=== PATIENT | male | born 1930 | race Caucasian/White ===

== ENCOUNTER 2017-03-11 17:43 | Observation (INO) ==
--- NOTE | 2017-03-11 18:07 | Emergency Department Note ---
Disposition Clinical Impression: Bradycardia Disposition: Admitted As Inpatient Condition: Fair Time of Disposition: 19:53 ([facility]) Weakness HPI - General Chief complaint: ED General Medical Stated complaint: low heart rate Source: patient, family Mode of arrival: ambulatory Limitations: age Nursing Notes Reviewed: Yes Vital Signs Reviewed: Yes - History of Present Illness Pt Subjective Complaint: generalized weakness/fatigue Onset (ago): Just [employer] Duration: constant Location: generalized Migration: none Pain Severity: none Pain Scale: 0 If pain, quality: tingling Improves with: none Worsens with: none Context: history of similar Associated symptoms: Reports: syncope (near). Denies: chest pain, confusion, dark stools, diaphoresis, dysuria, easy bruising, fever/chills, headaches, loss of appetite, nausea/vomiting, myalgias, rash, shortness of breath - Related Data Home Medications Medication Instructions Recorded Confirmed Aspirin [Adult Low Dose Aspirin EC] 81 mg PO QAM 08/24/15 03/11/17 Citalopram [CeleXA] 10 mg PO QAM 08/24/15 03/11/17 Clopidogrel [Plavix] 75 mg PO HS 08/24/15 03/11/17 Multivitamin/Iron/Folic Acid 1 each PO QAM 08/24/15 03/11/17 [Centrum Complete Multivit Tab] Omeprazole [PriLOSEC] 20 mg PO QAM 08/24/15 03/11/17 Montelukast [Singulair] 10 mg PO DAILY 03/11/17 03/11/17 Previous Rx's Medication Instructions Recorded ALPRAZolam [Xanax 0.5 MG Tablet] 0.5 mg PO Q6H PRN #20 tab 03/13/17 Clotrimazole/Betameth Dip CRM 1 appl TP BID 5 Days 03/13/17 [Lotrisone CRM] Simvastatin [Zocor] 40 mg PO HS #0 03/13/17 Allergies Allergy/AdvReac Type Severity Reaction Status Date / Time No Known Allergies Allergy Verified 03/11/17 18:03 All systems ED: reviewed and negative except as stated. Review of Systems: As Per HPI Constitutional: Reports: weakness. Denies: fever Eyes: Denies: eye pain ENT ED: Denies: ear pain Cardiovascular: Reports: syncope (near). Denies: chest pain Respiratory: Denies: cough, dyspnea Gastrointestinal: Denies: abdominal pain Genitourinary: Denies: urgency, dysuria Musculoskeletal: Denies: neck pain Integumentary: Denies: rash Neurological: Denies: headache Psychiatric: Denies: anxiety Endocrine: Denies: fatigue Hematological/Lymphatic: Denies: easy bleeding Allergic/Immunologic: Denies: facial swelling Past Medical History - Past Medical History Attestation: Yes The following information was validated with the patient. Source: patient, old records reviewed, nursing notes reviewed Medical history: Reports: cancer, CVA Surgical history: Reports: cancer surgery Psychiatric history: Reports: depression - Social History Smoking Status: Unknown if ever smoked Smokeless Tobacco Status: No Alcohol use: Reports: none Drug use: Reports: none Physical Exam - General Limitations: age General appearance: alert, in no apparent distress - Head Head exam: atraumatic, normocephalic, normal inspection - Eye Eye exam: Present: normal appearance, PERRL, EOMI - ENT ENT exam: normal exam, normal oropharynx, mucous membranes moist - Neck Neck exam: Present: normal inspection, full ROM, trachea midline - Chest Chest inspection: Present: normal inspection, symmetric chest wall rise - Respiratory Respiratory exam: Present: normal lung sounds bilaterally - Cardiovascular Cardiovascular exam: Present: regular rate, normal rhythm, normal heart sounds - Abdominal Exam Abdominal exam: Present: soft, Non-Tender. Absent: tenderness, distention, guarding, rebound, rigidity - Extremities Exam Extremities exam: Present: normal inspection, full ROM, normal capillary refill. Absent: tenderness, pedal edema, joint swelling, calf tenderness - Expanded Lower Extremity Exam Neurovascular/Tendon exam: Present: normal capillary refill, normal fine/light touch Gait: observed and normal (but weak) - Back Exam Back exam: Present: normal inspection, full ROM. Absent: muscle spasm - Neurological Exam Neurological exam: Present: alert, oriented X3, CN II-XII intact, normal gait - Psychiatric Psychiatric exam: Present: normal affect, normal mood - Skin Skin exam: Present: warm, dry, intact, normal color Course Course Narrative: pt seen and examined and admitted for obsv will monitor and transfer if no improvement for pacer placement Vital Signs Temperature 98.1 F 03/11/17 17:45 Pulse Rate 40 03/11/17 17:45 Respiratory Rate 18 03/11/17 17:45 Blood Pressure 112/52 03/11/17 17:45 O2 Sat by Pulse Oximetry 95 03/11/17 17:45 Temperature 97.8 F 03/13/17 06:41 Pulse Rate 70 03/13/17 06:41 Respiratory Rate 16 03/13/17 06:41 Blood Pressure 144/85 03/13/17 06:41 O2 Sat by Pulse Oximetry 95 03/13/17 06:41 Oxygen Delivery Oxygen Delivery Room Air Weakness - MDM Narrative Medical decision making narrative: bradycardia medication induced sick sinus syndrome and possible need for pacer - Medical Records Medical records reviewed: Yes I reviewed the patient's medical records. - Lab Data Lab results reviewed: Yes I reviewed the patient's lab results. Result diagrams: 03/13/17 04:32 03/12/17 06:00 Lab Results 03/11/17 03/11/17 03/11/17 Range/Units 00:29 18:00 18:00 WBC 6.7 (4.3-11.1) K/mcL RBC 4.42 (4.19-5.50) M/mcL Hgb 12.4 L (12.9-16.9) g/dL Hct 37.0 L (37.5-50.1) % MCV 83.7 (83.0-100.0) fL MCH 28.1 (28.0-33.3) pg MCHC 33.5 (31.6-35.5) g/dL RDW 14.0 (11.5-14.5) % Plt Count 185 (140-400) K/mcL MPV 9.9 (9.4-12.4) fL Immature Gran % 0.3 (0-4) % Seg Neutrophils % 54.4 % Lymphocytes % 31.7 % Monocytes % 9.8 % Eosinophils % 3.2 % Basophils % 0.6 % Neutrophils # 3.6 (1.6-8.9) K/mcL Lymphocytes # 2.1 (0.6-4.6) K/mcL Monocytes # 0.7 (0.0-1.3) K/mcL Eosinophils # 0.2 (0.0-0.6) K/mcL Basophils # 0.0 (0.0-0.2) K/mcL PT 11.8 (9.4-12.1) Seconds INR 1.1 APTT 27.4 (26.0-36.0) Seconds Sodium (136-145) mEq/L Potassium (3.5-4.5) mEq/L Chloride (98-109) mEq/L Carbon Dioxide (19-29) mEq/L BUN (8-26) mg/dL Creatinine (0.72-1.25) mg/dL Est GFR ( Amer) (> 60) Est GFR (Non-Af Amer) (> 60) BUN/Creatinine Ratio (6-26) Glucose (70-99) mg/dL Calculated Osmolality (280-300) Calcium (8.6-10.8) mg/dL Troponin I 0.02 (0-0.03) ng/mL 03/11/17 03/11/17 Range/Units 18:00 18:00 WBC (4.3-11.1) K/mcL RBC (4.19-5.50) M/mcL Hgb (12.9-16.9) g/dL Hct (37.5-50.1) % MCV (83.0-100.0) fL MCH (28.0-33.3) pg MCHC (31.6-35.5) g/dL RDW (11.5-14.5) % Plt Count (140-400) K/mcL MPV (9.4-12.4) fL Immature Gran % (0-4) % Seg Neutrophils % % Lymphocytes % % Monocytes % % Eosinophils % % Basophils % % Neutrophils # (1.6-8.9) K/mcL Lymphocytes # (0.6-4.6) K/mcL Monocytes # (0.0-1.3) K/mcL Eosinophils # (0.0-0.6) K/mcL Basophils # (0.0-0.2) K/mcL PT (9.4-12.1) Seconds INR APTT (26.0-36.0) Seconds Sodium 142 (136-145) mEq/L Potassium 3.9 (3.5-4.5) mEq/L Chloride 109 (98-109) mEq/L Carbon Dioxide 22 (19-29) mEq/L BUN 11 (8-26) mg/dL Creatinine 1.02 (0.72-1.25) mg/dL Est GFR ( Amer) > 60 (> 60) Est GFR (Non-Af Amer) > 60 (> 60) BUN/Creatinine Ratio 11 (6-26) Glucose 146 H (70-99) mg/dL Calculated Osmolality 296 (280-300) Calcium 8.7 (8.6-10.8) mg/dL Troponin I 0.01 (0-0.03) ng/mL - Radiology Data Radiology results reviewed: Yes I reviewed the patient's radiology results. ITS Impressions Chest X-Ray 03/11/17 18:00 IMPRESSION: No acute process. D/ /11/2017 18:31:10 Amari Davis MD / luz elena Interpreting Provider: Amari Davis MD - EKG Data EKG attestation: Yes I reviewed and interpreted this EKG. EKG results narrative: Sinus rhythm first degree AV block interventricular conduction delay nonspecific T-wave rate 68 NM-254 QRS 115 QT 393 excess -15 Critical Care Time Critical Care Time: Yes Total Critical Care Time: 35 Attestation: Critical care performed:35 mins as the result of the low heart rate and near syncope and admission observed due to possible medicaiton error Time is exclusive of separately billable procedures. Time includes: direct patient care, patient reassessment, coordination of patient care, interpretation of data (laboratory data, radiology data, and respiratory data), review of patient's medical records, medical consultation and documentation of patient care. Procedures included in critical care time: Procedures excluded from critical care time:
[2017-03-11 18:16] LABS: Basophils % 0.6 %; Eosinophils # 0.2 K/mcL (0.0-0.6); Eosinophils % 3.2 %; Hemoglobin 12.4 g/dL (12.9-16.9); Immature Granulocytes % 0.3 % (0-4); Lymphocytes # 2.1 K/mcL (0.6-4.6); Lymphocytes % 31.7 %; Mean Corpuscular HGB Conc 33.5 g/dL (31.6-35.5); Mean Corpuscular Hemoglobin 28.1 pg (28.0-33.3); Mean Corpuscular Volume 83.7 fL (83.0-100.0); Mean Platelet Volume 9.9 fL (9.4-12.4); Monocytes # 0.7 K/mcL (0.0-1.3); Monocytes % 9.8 %; Neutrophils # 3.6 K/mcL (1.6-8.9); Platelet Count 185 K/mcL (140-400); Red Blood Count 4.42 M/mcL (4.19-5.50); Segmented Neutrophils % 54.4 %
[2017-03-11 18:23] LABS: INR 1.1; Prothrombin Time 11.8 Seconds (9.4-12.1)
[2017-03-11 18:26] LABS: Activated Partial Thrombo Time 27.4 Seconds (26.0-36.0)
[2017-03-11 18:31] LABS: BUN/Creatinine Ratio 11 (6-26); Blood Urea Nitrogen 11 mg/dL (8-26); Calcium 8.7 mg/dL (8.6-10.8); Carbon Dioxide 22 mEq/L (19-29); Chloride 109 mEq/L (98-109); Glucose 146 mg/dL (70-99); Osmolality,Calculated 296 (280-300); Potassium 3.9 mEq/L (3.5-4.5); Sodium 142 mEq/L (136-145); eGFR For African Americans > 60 (> 60); eGFR For Non-African Americans > 60 (> 60)
[2017-03-11] MEDS ORDERED: Naloxone 0.4 MG/ML INJ IVP PRN (20:28)
[2017-03-12] MEDS: ALPRAZolam 0.5 MG TABLET PO PRN ×2 (01:57→20:21)
[2017-03-12 06:35] LABS: Basophils % 0.5 %; Eosinophils # 0.2 K/mcL (0.0-0.6); Eosinophils % 2.7 %; Hematocrit 33.8 % (37.5-50.1); Hemoglobin 11.4 g/dL (12.9-16.9); Immature Granulocytes % 0.4 % (0-4); Lymphocytes # 2.7 K/mcL (0.6-4.6); Lymphocytes % 35.2 %; Mean Corpuscular HGB Conc 33.7 g/dL (31.6-35.5); Mean Corpuscular Hemoglobin 28.1 pg (28.0-33.3); Mean Corpuscular Volume 83.3 fL (83.0-100.0); Mean Platelet Volume 10.3 fL (9.4-12.4); Monocytes # 0.7 K/mcL (0.0-1.3); Monocytes % 9.1 %; Neutrophils # 4.1 K/mcL (1.6-8.9); Platelet Count 174 K/mcL (140-400); Red Blood Count 4.06 M/mcL (4.19-5.50); Red Cell Distribution Width 13.9 % (11.5-14.5); Segmented Neutrophils % 52.1 %
[2017-03-12 06:37] LABS: INR 1.2; Prothrombin Time 12.5 Seconds (9.4-12.1)
[2017-03-12 06:39] LABS: Activated Partial Thrombo Time 26.3 Seconds (26.0-36.0)
[2017-03-12 06:45] LABS: BUN/Creatinine Ratio 12 (6-26); Blood Urea Nitrogen 10 mg/dL (8-26); Calcium 8.6 mg/dL (8.6-10.8); Carbon Dioxide 24 mEq/L (19-29); Chloride 108 mEq/L (98-109); Glucose 97 mg/dL (70-99); Osmolality,Calculated 295 (280-300); Potassium 3.7 mEq/L (3.5-4.5); Sodium 143 mEq/L (136-145); eGFR For African Americans > 60 (> 60); eGFR For Non-African Americans > 60 (> 60)
[2017-03-12] MEDS: Multivit/Ca/Min/Fe/FA 1 TAB TABLET PO SCH (08:24)
[2017-03-12] MEDS: Aspirin Enteric Coated 81 MG Tablet PO SCH (08:24)
--- NOTE | 2017-03-12 09:55 | Internal Med History&Physical ---
Date of Encounter: 03/12/17 Time of Encounter: 09:25 Assessment and Plan (1) Bradycardia Current visit: Yes Status: Acute Now resolved. Etiology not obvious. Will monitor telemetry (2) Hypertension Current visit: No Status: Chronic Zestril was discontinued through the emergency room. Will monitor blood pressure Qualifiers: Hypertension type: essential hypertension Qualified Code(s): I10 - Essential (primary) hypertension (3) Hyperlipidemia Current visit: No Status: Chronic Lipid profile 09/02/2015 showed total/HDL ratio of 2.6. Continue statin Qualifiers: Hyperlipidemia type: unspecified Qualified Code(s): E78.5 - Hyperlipidemia , unspecified (4) CVA (cerebral vascular accident) Current visit: No Status: Acute Status post left carotid endarterectomy August 2015. Continue aspirin and Plavix. Will order PT and OT evaluation to assess functional ability. Family has requested he be placed at [facility] in [place]. 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 Qualifiers: Anemia type: unspecified type Qualified Code(s): D64.9 - Anemia, unspecified (6) Seborrheic dermatitis Current visit: Yes Status: Acute Will order Lotrisone cream Internal Medicine - H&P: HPI Chief complaint: Bradycardia Admitted From: Home Plans for Post Hospital Care: Home History of present illness: Mr. Charlton is a 86 year old male who was brought to emergency room after heart rate was found to be approximately 40/m. Blood pressure was stable at 112/52 in emergency room. He was admitted to [facility] floor for observation until further disposition can be obtained. He is a very poor historian. He does not know his age, date of , address or reason for coming to the hospital. Review of available records show history of hypertension but no known OK heart failure angina DVT or pulmonary embolus. He has had documented ASCVD and underwent left carotid endarterectomy August 2015 at [facility]. Past Med Surg Social Fam HX - Past Medical History Medical history: cancer, CVA Psychiatric history: depression - Past Surgical History Surgical History: cancer surgery - Social History Smoking Status: Unknown if ever smoked Smokeless Tobacco Status: No Alcohol use: none Drug use: none - Family History Brother Living Status: Hx Family Cardiac Disorders: Yes (OK) Mother Living Status: Hx Family Cardiac Disorders: Yes (OK) Internal Medicine - H&P: Meds Aspirin [Adult Low Dose Aspirin EC] 81 mg PO QAM 08/24/15 [History] Citalopram [CeleXA] 10 mg PO QAM 08/24/15 [History] Clopidogrel [Plavix] 75 mg PO HS 08/24/15 [History] Multivitamin/Iron/Folic Acid [Centrum Complete Multivit Tab] 1 each PO QAM 08/24 [History] Omeprazole [PriLOSEC] 20 mg PO QAM 08/24/15 [History] Simvastatin [Zocor] 80 mg PO HS 08/24/15 [History] Lisinopril [Zestril] 2.5 mg PO DAILY 03/11/17 [History] Montelukast [Singulair] 10 mg PO DAILY 03/11/17 [History] Allergies No Known Allergies Allergy (Verified 03/11/17 18:03) All Systems PM: A 10-system review of systems was performed and is negative for pertinent findings except as documented above in the HPI. Review of systems: Gen.: His weight has increased from 77.9 kg at the August 2015 hospitalization to 81.647 kg on admission now Cardiovascular: As per history of present illness Respiratory: He states he smoked for 2-3 years as a teenager. 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 He had left carotid endarterectomy at that time. 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 He denies seizures Endocrine: He denies diabetes or thyroid disease. He has history of hyperlipidemia Hematology/oncology: He had anemia on labs in the emergency room. He denies internal malignancies Psychiatric: He denies anxiety depression or other mental health issues. I note Celexa is listed on his home medicine list. Musk skeletal: He denies arthritis gout other bone joint or muscle disorders. - Constitutional Vitals: Temp Pulse Resp BP Pulse Ox 98.2 F 64 16 144/79 97 03/12/17 07:25 03/12/17 07:25 03/12/17 07:25 03/12/17 07:25 03/12/17 08:43 Exam: Gen.: He is a well-developed well-nourished male lying in bed who appears in no acute distress HEENT: Head is atraumatic and normocephalic. Eyes: EOMI. There is no scleral icterus. Mouth: Mucosa is moist. Neck: Supple and nontender. There is no thyromegaly or adenopathy noted. Heart: Regular without murmurs gallops or ectopics Lungs: No wheezes or crackles are heard. Abdomen: Soft and nontender. No masses or guarding are noted. Extremities: There is no cyanosis edema or clubbing noted. Dorsalis pedis and posterior tibial pulses are 1 over 2 bilaterally. He has contracture with immobility of his left arm and wrist. Neurologic: Mental status: He is able to answer some questions but is a poor historian overall. He does not know his age, date of , or reason for coming to the hospital. Cranial nerves: Smile is symmetric. Forehead wrinkles bilaterally. Tongue protrudes midline. EOMI. Motor: He does not move his left arm. The right arm moves well. No further neurologic testing is attempted. Skin: He has seborrheic dermatitis of his face. He has a large scar in the left upper arm extending to the left upper anterolateral chest area. He denies burn injury in the past and does not know why the scar is there. Internal Med - H&P Results - Labs CBC & Chem 7: 03/12/17 06:00 03/12/17 06:00 Labs: Short CBC 03/12/17 Range/Units 06:00 WBC 7.8 (4.3-11.1) K/mcL Hgb 11.4 L (12.9-16.9) g/dL Hct 33.8 L (37.5-50.1) % Plt Count 174 (140-400) K/mcL Neutrophils # 4.1 (1.6-8.9) K/mcL BMP 03/12/17 06:00 Sodium 143 Potassium 3.7 Chloride 108 Carbon Dioxide 24 BUN 10 Creatinine 0.84 Glucose 97 Calcium 8.6 Cardiac Enzymes 03/12/17 Range/Units 06:00 Troponin I 0.02 (0-0.03) ng/mL
--- NOTE | 2017-03-12 16:19 | Electrocardiograph Report ---
[address] [address] Test Date: 2017-03-11 Pat Name: [facility] Department: [id number] Room: [facility] Gender: M Clinical Sales Consultant: [id number] : 1930 Requested By: Ly Cavazos Order Number: [id number] Reading MD: Rosalind Solis Measurements Intervals [place] Rate: 68 P: -5 TN: 254 QRS: -15 QRSD: 115 T: -30 QT: 393 QTc: 411 Interpretive Statements SINUS RHYTHM WITH FIRST DEGREE AV BLOCK MODERATE INTRAVENTRICULAR CONDUCTION DELAY NONSPECIFIC ST & T-WAVE ABNORMALITY Electronically Signed On 03-12-2017 16:17:48 EDT by Rosalind Solis
[2017-03-12] MEDS: Clotrimazole/Betameth Dip CRM 45 APPL/45 GM TUBE TP SCH ×2 (17:04→20:24)
[2017-03-13 05:16] LABS: Basophils % 0.6 %; Eosinophils # 0.2 K/mcL (0.0-0.6); Eosinophils % 3.1 %; Hematocrit 36.3 % (37.5-50.1); Hemoglobin 12.4 g/dL (12.9-16.9); Immature Granulocytes % 0.4 % (0-4); Lymphocytes # 2.5 K/mcL (0.6-4.6); Lymphocytes % 34.9 %; Mean Corpuscular HGB Conc 34.2 g/dL (31.6-35.5); Mean Corpuscular Hemoglobin 28.3 pg (28.0-33.3); Mean Corpuscular Volume 82.9 fL (83.0-100.0); Mean Platelet Volume 10.2 fL (9.4-12.4); Monocytes # 0.7 K/mcL (0.0-1.3); Monocytes % 10.3 %; Neutrophils # 3.7 K/mcL (1.6-8.9); Platelet Count 185 K/mcL (140-400); Red Blood Count 4.38 M/mcL (4.19-5.50); Red Cell Distribution Width 13.8 % (11.5-14.5); Segmented Neutrophils % 50.7 %
[2017-03-13 06:04] LABS: Thyroid Stimulating Hormone 0.895 mcIU/mL (0.350-4.840)
[2017-03-13 06:46] VITALS: BP 144/85
[2017-03-13] MEDS: Multivit/Ca/Min/Fe/FA 1 TAB TABLET PO SCH (08:38)
[2017-03-13] MEDS: Clotrimazole/Betameth Dip CRM 45 APPL/45 GM TUBE TP SCH (08:38)
[2017-03-13] MEDS: Aspirin Enteric Coated 81 MG Tablet PO SCH (08:38)
--- NOTE | 2017-03-13 14:34 | Discharge Summary ---
Date of Encounter: 03/13/17 Time of Encounter: 14:20 - Discharge Diagnosis (1) Bradycardia Priority: Primary Status: Resolved (2) Hypertension Priority: Secondary Status: Chronic Qualifiers: Hypertension type: essential hypertension Qualified Code(s): I10 - Essential (primary) hypertension (3) Hyperlipidemia Priority: Secondary Status: Chronic Qualifiers: Hyperlipidemia type: unspecified Qualified Code(s): E78.5 - Hyperlipidemia , unspecified (4) CVA (cerebral vascular accident) Priority: Secondary Status: Chronic Qualifiers: CVA mechanism: stenosis Precerebral and cerebral artery: middle cerebral artery Laterality of affected vessel: left Qualified Code(s): I63.512 - 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 (5) Anemia Priority: Secondary Status: Acute Qualifiers: Anemia type: unspecified type Qualified Code(s): D64.9 - Anemia, unspecified (6) Seborrheic dermatitis Priority: Secondary Status: Acute - Discharge Medications Prescriptions: ALPRAZolam [Xanax 0.5 MG Tablet] 0.5 mg PO Q6H PRN #20 tab PRN Reason: Anxiety Home Medications: Aspirin [Adult Low Dose Aspirin EC] 81 mg PO QAM 08/24/15 [History] Citalopram [CeleXA] 10 mg PO QAM 08/24/15 [History] Clopidogrel [Plavix] 75 mg PO HS 08/24/15 [History] Multivitamin/Iron/Folic Acid [Centrum Complete Multivit Tab] 1 each PO QAM 08/24 [History] Omeprazole [PriLOSEC] 20 mg PO QAM 08/24/15 [History] Montelukast [Singulair] 10 mg PO DAILY 03/11/17 [History] ALPRAZolam [Xanax 0.5 MG Tablet] 0.5 mg PO Q6H PRN #20 tab 03/13/17 [Rx] Clotrimazole/Betameth Dip CRM [Lotrisone CRM] 1 appl TP BID 5 Days 03/13/17 [Rx] Simvastatin [Zocor] 40 mg PO HS #0 03/13/17 [Rx] Allergies/Adverse Reactions: Allergies No Known Allergies Allergy (Verified 03/11/17 18:03) Date of admission: 03/11/17 20:11 [facility] care physician: [facility] Consults: 03/12/17 10:14 Consult to Occupational Therapy [CONS] Routine Comment: Evaluate, develop and implement POC Reason for Consult: Status post multiple strokes, left hemiparesis 03/12/17 10:15 Consult to Physical Therapy [CONS] Routine Comment: Evaluate, develop and implement POC Reason for Consult: Multiple strokes, left hemiparesis - Patient Status Disposition: Transfer SNF Condition: Fair Functional capacity at discharge: uses cane/walker Overall status at discharge: patient is progressing back to baseline - Discharge Instructions - Diet and Activity Activity: as per physical therapy Diet: regular diet Hospital course: Mr. Charlton is a 86 year old male who was brought to emergency room after heart rate was found to be approximately 40/m. Blood pressure was stable at 112/52 in emergency room. He was admitted to [facility] for observation until further disposition can be obtained. Initial orders were written by the emergency room physician. I saw him on March 12 and performed the history and physical. Lisinopril was discontinued in emergency room. His blood pressure remained stable. Heart rate gradually returned to range of 60-80 bpm. He remained asymptomatic. Anemia testing was ordered with results pending at time of discharge. Hemoglobin was stable at 12.4 on the day of discharge. He was given Lotrisone cream for facial seborrheic dermatitis. This will be continued for 5 additional days at discharge. His daughter wished him to be discharged to [facility] for ongoing therapy. Arrangements were completed for this afternoon of March 13. - Time Spent with Patient Total time spent providing and/or coordinating discharge services: - Constitutional Vitals: Temp Pulse Resp BP Pulse Ox 97.8 F 70 16 144/85 95 03/13/17 06:41 03/13/17 06:41 03/13/17 06:41 03/13/17 06:41 03/13/17 06:41
[2017-03-13 14:44] LABS: Folate 15.8 ng/mL (7.0-31.4)
--- NOTE | 2017-03-13 14:57 | Physician Discharge Referral ---
ExtendedCare Referral Info Transfer To: [facility] Provider in Charge: Ermias Provider in Charge after Transfer: PCP - Diagnosis (1) Bradycardia Priority: Primary Status: Resolved (2) Hypertension Priority: Secondary Status: Chronic (3) Hyperlipidemia Priority: Secondary Status: Chronic (4) CVA (cerebral vascular accident) Priority: Secondary Status: Chronic (5) Anemia Priority: Secondary Status: Acute (6) Seborrheic dermatitis Priority: Secondary Status: Acute Prognosis: Fair Aware of Diagnosis: Patient, Family Aware of Prognosis: Patient, Family - Transfer Medications Prescriptions: ALPRAZolam [Xanax 0.5 MG Tablet] 0.5 mg PO Q6H PRN #20 tab PRN Reason: Anxiety Home Medications: Aspirin [Adult Low Dose Aspirin EC] 81 mg PO QAM 08/24/15 [History] Citalopram [CeleXA] 10 mg PO QAM 08/24/15 [History] Clopidogrel [Plavix] 75 mg PO HS 08/24/15 [History] Multivitamin/Iron/Folic Acid [Centrum Complete Multivit Tab] 1 each PO QAM 08/24 [History] Omeprazole [PriLOSEC] 20 mg PO QAM 08/24/15 [History] Montelukast [Singulair] 10 mg PO DAILY 03/11/17 [History] ALPRAZolam [Xanax 0.5 MG Tablet] 0.5 mg PO Q6H PRN #20 tab 03/13/17 [Rx] Clotrimazole/Betameth Dip CRM [Lotrisone CRM] 1 appl TP BID 5 Days 03/13/17 [Rx] Simvastatin [Zocor] 40 mg PO HS #0 03/13/17 [Rx] Allergies/Adverse Reactions: Allergies No Known Allergies Allergy (Verified 03/11/17 18:03) - Respiratory Orders Smoking Cessation: Smoking cessation has been advised. For more information, call the [place] Tobacco Quit Line at 3-105-BIKY-NOW. - Rehabiliation Orders Rehab Potential: Fair Rehab Orders: Evaluation for Physical Therapy, Evaluation for Occupational Therapy - Diet Orders Regular CERTIFICATION: I certify that the transfer of the above named patient to an Extended Care Facility is necessary for the continuing treatment of the diagnosis listed. The above information is true and accurate reflection of patient's current condition. Confidential - Redisclosure prohibited without a patient's written consent.
== END 2017-03-13 16:30 ==
LOC: EMEROOPIK 17:43 → INPPIK 17:43
PROVIDERS: ADMIT Internal Medicine; ATTEND Internal Medicine

== ENCOUNTER 2018-04-29 20:40 | Inpatient (IN) ==
[2018-04-29] MEDS ORDERED: 0.9 % Sodium Chloride 1,000 ML IVC ONE (20:55)
[2018-04-29] MEDS ORDERED: Ondansetron 4 MG/2 ML VIAL IVP ONE (20:55)
--- NOTE | 2018-04-29 21:10 | Emergency Department Note ---
Disposition Clinical Impression: Enteritis, Abdominal distension Disposition: Admitted As Inpatient Condition: Undetermined Referrals: Paul Bermudez MD [Primary Care Provider] - Forms: ED Satisfaction Letter Time of Disposition: 22:00 (Dr Echols accepted the pt, keep NPO, NG tube) Nausea/Vomiting/Diarrhea HPI - General Chief complaint: ED Nausea/Vomiting/Diarrhea Stated complaint: vomiting Source: EMS Limitations: other Nursing Notes Reviewed: Yes Vital Signs Reviewed: Yes - History of Present Illness HPI Narrative: Patient is a pleasant 87 yo M with significant PMH for CA, CVA, Dementia and HTN who is presenting to [facility] Emergency Room with a chief complaint off emesis with abd distension. SNF nursing staff called EMS. Pt has had 2 bilous emesis at 5 pm and another 2 juts proior to EMS arrival. All were biluous and projectile. He passed moderate BM today. He denies any abd pain at all. Pt does not take narcotics. Pt is a poor historian so Hx is obtained from SNF and document. Patient denies any fever, chills or night sweats. Pt also denies any eye pain or visual disturbances. There is no sore throat, nasal drainages or facial congestion. There is no chest pain, palpitations or racing heart. Pt also denies any shortness of breath, cough or chest congestion. There is no abdominal pain, or diarrhea. There is no urgency, frequency or dysuria. There is no muskulo-skeletal pain, arthralgia or back pain. Patient also denies any rash, edema or pruritus. There is no neurological manifestations, no headache, no vertigo or weakness. The patient also denies any anxiety, depression, hallucinations and has no homicidal or suicidal ideations. There is no polyuria, polydipsia or recent weight change. There is no easy bruising or bleeding. Review of other systems is otherwise negative except above. Pt Subjective Complaint: nausea, vomiting Onset (ago): hour(s) Description of emesis: bilious Number of episodes of emesis: 4 Associated Abdominal Pain: No - Related Data Home Medications Medication Instructions Recorded Confirmed Aspirin [Adult Low Dose Aspirin EC] 325 mg PO QAM 08/24/15 12/27/17 Clopidogrel [Plavix] 75 mg PO HS 08/24/15 12/27/17 Multivitamin/Iron/Folic Acid 1 each PO QAM 08/24/15 12/27/17 [Centrum Complete Multivit Tab] Montelukast [Singulair] 10 mg PO DAILY 03/11/17 12/27/17 Acetaminophen [Tylenol] 650 mg PO 0500 PRN 12/27/17 12/27/17 Citalopram [CeleXA] 20 mg PO DAILY 12/27/17 12/27/17 Lactobacillus Acidophilus 1 each PO QAM 12/27/17 12/27/17 [Acidophilus] Levofloxacin [Levaquin] 500 mg PO QAM 12/27/17 12/27/17 Lisinopril [Zestril] 2.5 mg PO DAILY 12/27/17 12/27/17 Pantoprazole Sodium [Protonix] 20 mg PO DAILY 12/27/17 12/27/17 Previous Rx's Medication Instructions Recorded ALPRAZolam [Xanax 0.5 MG Tablet] 0.5 mg PO Q6H PRN #20 tab 03/13/17 Simvastatin [Zocor] 40 mg PO HS #0 03/13/17 Allergies Allergy/AdvReac Type Severity Reaction Status Date / Time No Known Allergies Allergy Verified 03/11/17 18:03 All systems ED: reviewed and negative except as stated. Review of Systems: As Per HPI Constitutional: Denies: fever, chills, weakness, weight change Eyes: Denies: eye pain, eye discharge, vision change ENT ED: Denies: ear pain, throat pain, dental pain, hearing loss, epistaxis, congestion, dysphagia Cardiovascular: Denies: chest pain, palpitations, dyspnea on exertion, edema, syncope Respiratory: Denies: cough, dyspnea, wheezes, hemoptysis, stridor Gastrointestinal: Reports: nausea, vomiting, other (DISTENSION). Denies: abdominal pain, diarrhea, constipation, hematemesis, melena, hematochezia Genitourinary: Denies: urgency, dysuria, frequency, hematuria Musculoskeletal: Denies: back pain, neck pain, arthralgia, myalgia Integumentary: Denies: rash, abrasion, lesions Neurological: Denies: headache, weakness, numbness, paresthesias, confusion, abnormal gait, vertigo Psychiatric: Denies: anxiety, depression, suicidal thoughts, homicidal thoughts , auditory hallucinations, visual hallucinations Endocrine: Denies: fatigue Hematological/Lymphatic: Denies: easy bleeding, easy bruising Allergic/Immunologic: Denies: facial swelling, urticaria Past Medical History - Past Medical History Medical history: Reports: cancer, CVA Surgical history: Reports: cancer surgery Psychiatric history: Reports: depression - Social History Smoking Status: Former smoker Smokeless Tobacco Status: No Alcohol use: Reports: none Drug use: Reports: none Physical Exam - General Limitations: no limitations, other (DEMENTIA hx is challenging) General appearance: alert, in no apparent distress - Head Head exam: atraumatic, normocephalic, normal inspection - Eye Eye exam: Present: normal appearance, PERRL, EOMI - Expanded Eye Exam Pupils: Left: reactive - ENT ENT exam: normal exam, normal oropharynx, mucous membranes moist - Expanded ENT Exam External ear exam: Present: normal external inspection Mouth exam: Present: normal external inspection Teeth exam: Present: normal inspection Throat exam: Present: normal inspection - Neck Neck exam: Present: normal inspection, full ROM, trachea midline - Chest Chest inspection: Present: normal inspection, symmetric chest wall rise - Respiratory Respiratory exam: Present: normal lung sounds bilaterally - Cardiovascular Cardiovascular exam: Present: regular rate, normal rhythm, normal heart sounds - Abdominal Exam Abdominal exam: Present: soft, Non-Tender, distention, diminished bowel sounds. Absent: tenderness, guarding, rebound, rigidity - Extremities Exam Extremities exam: Present: normal inspection, full ROM. Absent: tenderness, pedal edema - Expanded Upper Extremity Exam Shoulder exam: Present: normal inspection, full ROM Arm exam: Present: normal inspection, full ROM Elbow exam: Present: normal inspection, full ROM Forearm/Wrist exam: Present: normal inspection, full ROM Hand exam: Present: normal inspection, full ROM Vascular exam: Normal: capillary refill, radial pulse - Expanded Lower Extremity Exam Hip/Pelvis exam: Present: normal inspection, full ROM Upper leg exam: Present: normal inspection, full ROM Knee exam: Present: normal inspection, full ROM Lower leg exam: Present: normal inspection, full ROM Ankle exam: Present: normal inspection, full ROM Foot/toe exam: Present: normal inspection, full ROM Neurovascular/Tendon exam: Absent: motor deficit, sensory deficit, tendon deficit - Back Exam Back exam: Present: normal inspection, full ROM. Absent: tenderness - Neurological Exam Neurological exam: Present: alert, other (baseline dementia) - Expanded Neurological Exam Patient oriented to: Present: person, place, time Coma Scale Eye Opening: Spontaneous Coma Scale Motor Response: Obeys Commands Coma Scale Verbal Response: Oriented Coma Scale Total: 15 - Psychiatric Psychiatric exam: Present: normal affect, normal mood - Skin Skin exam: Present: warm, dry, intact, normal color Course Vital Signs Temperature 97.7 F 04/29/18 20:41 Pulse Rate 89 04/29/18 20:41 Respiratory Rate 20 04/29/18 20:41 Blood Pressure 121/72 04/29/18 20:41 O2 Sat by Pulse Oximetry 94 04/29/18 20:41 Temperature 97.7 F 04/29/18 20:41 Pulse Rate 89 04/29/18 20:41 Respiratory Rate 20 04/29/18 20:41 Blood Pressure 121/72 04/29/18 20:41 O2 Sat by Pulse Oximetry 93 04/29/18 20:58 Oxygen Delivery Oxygen Delivery Nasal Cannula Nausea/Vomiting/Diarrhea - Differential Diagnosis Likely: food poisoning, gastroenteritis, drug-induced nausea and vomitting, dehydration, surgical process, bowel obstruction - Medical Records Medical records reviewed: Yes I reviewed the patient's medical records. - Lab Data Lab results reviewed: Yes I reviewed the patient's lab results. Result diagrams: 04/29/18 21:23 04/29/18 21:23 Lab Results 04/29/18 04/29/18 Range/Units 21:23 21:23 WBC 13.8 H (4.3-11.1) K/mcL RBC 5.39 (4.19-5.50) M/mcL Hgb 15.0 (12.9-16.9) g/dL Hct 45.5 (37.5-50.1) % MCV 84.4 (83.0-100.0) fL MCH 27.8 L (28.0-33.3) pg MCHC 33.0 (31.6-35.5) g/dL RDW 13.3 (11.5-14.5) % Plt Count 264 (140-400) K/mcL MPV 9.1 L (9.4-12.4) fL Immature Gran % 0.5 (0-4) % Seg Neutrophils % 77.2 % Lymphocytes % 13.2 % Monocytes % 7.8 % Eosinophils % 0.9 % Basophils % 0.4 % Neutrophils # 10.7 H (1.6-8.9) K/mcL Lymphocytes # 1.8 (0.6-4.6) K/mcL Monocytes # 1.1 (0.0-1.3) K/mcL Eosinophils # 0.1 (0.0-0.6) K/mcL Basophils # 0.1 (0.0-0.2) K/mcL Sodium 135 L (136-145) mEq/L Potassium 4.7 (3.5-5.1) mEq/L Chloride 99 (98-107) mEq/L Carbon Dioxide 26 (23-29) mEq/L BUN 27 H (8-23) mg/dL Creatinine 1.26 (0.70-1.30) mg/dL Est GFR ( Amer) > 60 (> 60) Est GFR (Non-Af Amer) 54 L (> 60) BUN/Creatinine Ratio 21 (6-26) Glucose 180 H (70-105) mg/dL Calculated Osmolality 290 (280-300) Calcium 9.4 (8.6-10.3) mg/dL Total Bilirubin 0.4 (0.3-1.0) mg/dL AST 19 (13-39) Units/L ALT 19 (7-52) Units/L Alkaline Phosphatase 97 (34-104) Units/L Serum Total Protein 7.7 (6.4-8.9) g/dL Albumin 3.6 (3.5-5.7) g/dL Globulin 4.1 H (2.4-3.5) g/dL Albumin/Globulin Ratio 0.9 L (1.1-2.2) - Radiology Data Radiology results reviewed: Yes I reviewed the patient's radiology results.
[2018-04-29 21:29] LABS: Basophils # 0.1 K/mcL (0.0-0.2); Basophils % 0.4 %; Eosinophils # 0.1 K/mcL (0.0-0.6); Eosinophils % 0.9 %; Hematocrit 45.5 % (37.5-50.1); Immature Granulocytes % 0.5 % (0-4); Lymphocytes # 1.8 K/mcL (0.6-4.6); Lymphocytes % 13.2 %; Mean Corpuscular Hemoglobin 27.8 pg (28.0-33.3); Mean Corpuscular Volume 84.4 fL (83.0-100.0); Mean Platelet Volume 9.1 fL (9.4-12.4); Monocytes # 1.1 K/mcL (0.0-1.3); Monocytes % 7.8 %; Platelet Count 264 K/mcL (140-400); Red Blood Count 5.39 M/mcL (4.19-5.50); Red Cell Distribution Width 13.3 % (11.5-14.5); Segmented Neutrophils % 77.2 %
[2018-04-29 21:30] LABS: Neutrophils # 10.7 K/mcL (1.6-8.9)
[2018-04-29 21:47] LABS: Alanine Aminotransferase 19 Units/L (7-52); Albumin 3.6 g/dL (3.5-5.7); Albumin/Globulin Ratio 0.9 (1.1-2.2); Alkaline Phosphatase 97 Units/L (34-104); Aspartate Amino Transferase 19 Units/L (13-39); BUN/Creatinine Ratio 21 (6-26); Bilirubin,Total 0.4 mg/dL (0.3-1.0); Blood Urea Nitrogen 27 mg/dL (8-23); Calcium 9.4 mg/dL (8.6-10.3); Carbon Dioxide 26 mEq/L (23-29); Chloride 99 mEq/L (98-107); Globulin 4.1 g/dL (2.4-3.5); Glucose 180 mg/dL (70-105); Osmolality,Calculated 290 (280-300); Potassium 4.7 mEq/L (3.5-5.1); Sodium 135 mEq/L (136-145); Total Protein 7.7 g/dL (6.4-8.9); eGFR For Non-African Americans 54 (> 60)
[2018-04-29] MEDS ORDERED: MetroNIDAZOLE 500 MG/100 ML 500 MG/100 ML BAG IVPB ONE (21:54)
[2018-04-29 22:05] LABS: Bilirubin,Urine Negative (Negative); Blood,Urine Small (Negative); Clarity,Urine Clear (Clear); Color,Urine Yellow (Yellow); Glucose,Urine (UA) Normal (Normal); Ketones,Urine Negative (Negative); Leukocyte Esterase,Urine Negative (Negative); Nitrite,Urine Negative (Negative); Protein,Urine Negative (Neg-Trace); Specific Gravity,Urine 1.015 (1.010-1.025); Urobilinogen,Urine Normal (Normal)
[2018-04-29] MEDS ORDERED: Ondansetron 4 MG/2 ML VIAL IVP PRN ×2 (22:06→22:56)
[2018-04-29] MEDS ORDERED: Naloxone 0.4 MG/ML INJ IVP PRN ×2 (22:06→22:56)
[2018-04-29 22:13] LABS: RBC,Urine 15-30 per hpf (0-3); Squamous Epithelial Cell,Urine Few per lpf (None-Few)
[2018-04-29] MEDS ORDERED: 0.9 % Sodium Chloride 1,000 ML IVC SCH (22:15)
[2018-04-29] MEDS: 0.9 % Sodium Chloride 1,000 ML IVC SCH (23:42)
[2018-04-30 06:37] LABS: Basophils # 0.1 K/mcL (0.0-0.2); Basophils % 0.5 %; Eosinophils # 0.2 K/mcL (0.0-0.6); Eosinophils % 2.4 %; Hematocrit 37.6 % (37.5-50.1); Hemoglobin 12.3 g/dL (12.9-16.9); Immature Granulocytes % 0.6 % (0-4); Lymphocytes # 1.7 K/mcL (0.6-4.6); Lymphocytes % 17.1 %; Mean Corpuscular HGB Conc 32.7 g/dL (31.6-35.5); Mean Corpuscular Hemoglobin 28.1 pg (28.0-33.3); Mean Platelet Volume 9.3 fL (9.4-12.4); Monocytes % 9.7 %; Neutrophils # 7.1 K/mcL (1.6-8.9); Platelet Count 217 K/mcL (140-400); Red Blood Count 4.37 M/mcL (4.19-5.50); Red Cell Distribution Width 13.2 % (11.5-14.5); Segmented Neutrophils % 69.7 %
[2018-04-30 06:50] LABS: INR 1.2; Prothrombin Time 13.9 Seconds (9.4-12.1)
[2018-04-30] MEDS: 0.9 % Sodium Chloride 1,000 ML IVC SCH (06:58)
[2018-04-30 07:03] LABS: Alanine Aminotransferase 14 Units/L (7-52); Albumin/Globulin Ratio 0.9 (1.1-2.2); Alkaline Phosphatase 78 Units/L (34-104); Aspartate Amino Transferase 14 Units/L (13-39); BUN/Creatinine Ratio 22 (6-26); Bilirubin,Total 0.4 mg/dL (0.3-1.0); Blood Urea Nitrogen 22 mg/dL (8-23); Calcium 8.4 mg/dL (8.6-10.3); Carbon Dioxide 27 mEq/L (23-29); Chloride 104 mEq/L (98-107); Globulin 3.2 g/dL (2.4-3.5); Glucose 131 mg/dL (70-105); Magnesium 2.1 mg/dL (1.6-2.6); Osmolality,Calculated 291 (280-300); Potassium 4.2 mEq/L (3.5-5.1); Sodium 138 mEq/L (136-145); Total Protein 6.2 g/dL (6.4-8.9); eGFR For Non-African Americans > 60 (> 60)
--- NOTE | 2018-04-30 14:38 | Internal Med History&Physical ---
Date of Encounter: 04/30/18 Time of Encounter: 14:10 Assessment and Plan (1) Enteritis Current visit: Yes Status: Acute He was given IV Cipro and Flagyl in emergency room. Continue these with addition of lactobacillus when able to tolerate oral intake (2) Pneumonia Current visit: Yes Status: Acute Abdominal CT scan showed right small pleural effusion with adjacent airspace disease. Will give Cipro and Flagyl as per above. Qualifiers: Pneumonia type: due to unspecified organism Laterality: right Lung location: lower lobe of lung Qualified Code(s): J18.1 - Lobar pneumonia, unspecified organism (3) Hypertension Current visit: No Status: Chronic Continue lisinopril when tolerating oral intake and monitor blood pressure. Qualifiers: Hypertension type: essential hypertension Qualified Code(s): I10 - Essential (primary) hypertension (4) CVA (cerebral vascular accident) Current visit: No Status: Chronic Continue Plavix and aspirin when oral intake resumes. Qualifiers: CVA mechanism: stenosis Precerebral and cerebral artery: middle cerebral artery Laterality of affected vessel: left Qualified Code(s): I63.512 - 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 (5) Anemia Current visit: No Status: Acute Hemoglobin decreased to 12.3 with IV hydration. Will order anemia testing in a.m. Qualifiers: Anemia type: unspecified type Qualified Code(s): D64.9 - Anemia, unspecified Internal Medicine - H&P: HPI Chief complaint: Vomiting Admitted From: Emergency Dept Plans for Post Hospital Care: Home History of present illness: Mr. Charlton is a 87 year old male who was sent to emergency room from [facility] after staff reported multiple episodes of vomiting in the preceding hours. There was no visible blood reported. He was evaluated in emergency room and found to have leukocytosis without significant left shift. CT scan showed abnormality suggestive of infectious enteritis. He was admitted to Med[facility] floor for ongoing care needs. Patient has dementia and cannot give reliable history. Review of available records show GI history negative for known disorders of liver gallbladder or exocrine pancreas. His daughter denies knowledge of past colonoscopy or previous similar episodes. Past Med Surg Social Fam HX - Past Medical History Medical history: cancer, CVA, dementia, GERD, hypertension Additional medical history: Dermatitis, Skin cancer right ear, Peripheral Vascular Disease, Psoriasis Psychiatric history: anxiety, depression - Past Surgical History Surgical History: cancer surgery Additional surgical history: Right ear Ca. surgery - Social History Smoking Status: Former smoker Smokeless Tobacco Status: No Alcohol use: none Drug use: none - Family History Brother Living Status: Hx Family Cardiac Disorders: Yes (CT) Mother Living Status: Hx Family Cardiac Disorders: Yes (CT) Internal Medicine - H&P: Meds Aspirin [Adult Low Dose Aspirin EC] 81 mg PO QAM 08/24/15 [History] Clopidogrel [Plavix] 75 mg PO HS 08/24/15 [History] Multivitamin/Iron/Folic Acid [Centrum Complete Multivit Tab] 1 each PO QAM 08/24 [History] Montelukast [Singulair] 10 mg PO DAILY 03/11/17 [History] ALPRAZolam [Xanax 0.5 MG Tablet] 0.5 mg PO Q6H PRN #20 tab 03/13/17 [Rx] Simvastatin [Zocor] 40 mg PO HS #0 03/13/17 [Rx] Acetaminophen [Tylenol] 325 mg PO 0500 PRN 12/27/17 [History] Citalopram [CeleXA] 20 mg PO DAILY 12/27/17 [History] Lisinopril [Zestril] 2.5 mg PO DAILY 12/27/17 [History] Pantoprazole Sodium [Protonix] 20 mg PO DAILY 12/27/17 [History] Ammonium Lactate [Lac-Hydrin Five] 226 gm TP DAILY 04/29/18 [History] Cetirizine HCl [Zyrtec] 10 mg PO DAILY 04/29/18 [History] Vitamin B Complex/Vit C/Vit E [Stresstab] 1 each PO DAILY 04/29/18 [History] 3 Allergy/AdvReac Type Severity Reaction Status Date / Time No Known Allergies Allergy Verified 03/11/17 18:03 All Systems PM: A 10-system review of systems was performed and is negative for pertinent findings except as documented above in the HPI. Review of systems: Review of systems from his February 2017 [facility] hospitalization were reviewed and revised as below. Gen.: His weight has increased from 77.9 kg at the August 2015 hospitalization to 84.368 kg on admission now Cardiovascular: He has history of hypertension but no known CT heart failure angina DVT or pulmonary embolus. He has ASCVD and had left carotid endarterectomy August 2015 at [facility]. Respiratory: He states he smoked for 2-3 years as a teenager. 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 He had left carotid endarterectomy at that time. 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 He denies seizures Endocrine: He denies diabetes or thyroid disease. He has history of hyperlipidemia Hematology/oncology: He had anemia on labs in the emergency room. He denies internal malignancies Psychiatric: He denies anxiety depression or other mental health issues. I note Joe is listed on his home medicine list. Musk skeletal: He denies arthritis gout other bone joint or muscle disorders. - Constitutional Vitals: Temp Pulse Resp BP Pulse Ox 98.9 F 64 16 120/64 97 04/30/18 10:45 04/30/18 10:45 04/30/18 10:45 04/30/18 10:45 04/30/18 10:45 Exam: Gen.: He is a well-developed well-nourished male lying in bed who appears in no acute distress HEENT: Head is atraumatic and normocephalic. Eyes: EOMI. There is no scleral icterus. Mouth: Mucosa is moist. Neck: Stiff on passive range of motion in all directions. He has a well-healed left carotid endarterectomy scar. Heart: Regular without murmurs gallops or ectopics Lungs: No wheezes or crackles are heard. Abdomen: There is firmness without masses or guarding present. Bowel sounds are diminished. Extremities: His left arm is in a flexion contraction position. There is no cyanosis edema or clubbing noted of his legs. Dorsalis pedis and posttibial pulses are trace palpable bilaterally. His feet are warm to touch. 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 Neurologic: Mental status: He is hard of hearing and has dementia. He does not supply significant history. He denies pain or dyspnea. Cranial nerves: Facial movements are minimal but symmetric. Forehead wrinkles bilaterally. Tongue protrudes midline. EOMI. Motor: He does not move his left arm. The right arm moves well. He does not move his legs much spontaneously. Cerebellar: Finger to nose is intact with the right arm. Skin: Warm and dry. He has seborrheic dermatitis of his face. He has maceration with shallow ulcer in the left antecubital area skin from presumable flexion contracture Internal Med - H&P Results - Labs CBC & Chem 7: 04/30/18 06:25 04/30/18 06:25 Labs: Short CBC 04/30/18 Range/Units 06:25 WBC 10.2 (4.3-11.1) K/mcL Hgb 12.3 L D (12.9-16.9) g/dL Hct 37.6 (37.5-50.1) % Plt Count 217 (140-400) K/mcL Neutrophils # 7.1 (1.6-8.9) K/mcL BMP 04/30/18 06:25 Sodium 138 Potassium 4.2 Chloride 104 Carbon Dioxide 27 BUN 22 Creatinine 1.01 Glucose 131 H Calcium 8.4 L Liver Function 04/30/18 Range/Units 06:25 Total Bilirubin 0.4 (0.3-1.0) mg/dL AST 14 (13-39) Units/L ALT 14 (7-52) Units/L Alkaline Phosphatase 78 (34-104) Units/L Albumin 3.0 L (3.5-5.7) g/dL
[2018-04-30] MEDS: MetroNIDAZOLE 500 MG/100 ML 500 MG/100 ML BAG IVPB SCH (17:47)
[2018-05-01] MEDS: MetroNIDAZOLE 500 MG/100 ML 500 MG/100 ML BAG IVPB SCH ×3 (00:15→15:36)
[2018-05-01 06:28] LABS: Basophils % 0.5 %; Eosinophils # 0.2 K/mcL (0.0-0.6); Eosinophils % 2.5 %; Hematocrit 35.4 % (37.5-50.1); Hemoglobin 11.6 g/dL (12.9-16.9); Immature Granulocytes % 0.5 % (0-4); Lymphocytes # 1.8 K/mcL (0.6-4.6); Lymphocytes % 20.7 %; Mean Corpuscular HGB Conc 32.8 g/dL (31.6-35.5); Mean Corpuscular Hemoglobin 28.2 pg (28.0-33.3); Mean Corpuscular Volume 85.9 fL (83.0-100.0); Mean Platelet Volume 8.7 fL (9.4-12.4); Monocytes % 11.8 %; Neutrophils # 5.5 K/mcL (1.6-8.9); Platelet Count 198 K/mcL (140-400); Red Blood Count 4.12 M/mcL (4.19-5.50); Red Cell Distribution Width 13.1 % (11.5-14.5)
[2018-05-01 06:48] LABS: BUN/Creatinine Ratio 14 (6-26); Blood Urea Nitrogen 14 mg/dL (8-23); Calcium 8.5 mg/dL (8.6-10.3); Carbon Dioxide 28 mEq/L (23-29); Chloride 103 mEq/L (98-107); Glucose 120 mg/dL (70-105); Osmolality,Calculated 286 (280-300); Sodium 137 mEq/L (136-145); eGFR For Non-African Americans > 60 (> 60)
--- NOTE | 2018-05-01 10:59 | Internal Med Progress Note ---
Date of Encounter: 05/01/18 Time of Encounter: 10:50 - Assessment and plan (1) Enteritis Current Visit: Yes Status: Acute Assessment and plan: May 01. Continue IV Cipro and Flagyl with lactobacillus. (2) Pneumonia Current Visit: Yes Status: Acute Assessment and plan: May 01. Continue IV Cipro and Flagyl with lactobacillus. Qualifiers: Pneumonia type: due to unspecified organism Laterality: right Lung location: lower lobe of lung Qualified Code(s): J18.1 - Lobar pneumonia, unspecified organism (3) Hypertension Current Visit: No Status: Chronic Assessment and plan: May 01. Blood pressure remains stable off medication. Will not restart at this time. Qualifiers: Hypertension type: essential hypertension Qualified Code(s): I10 - Essential (primary) hypertension (4) CVA (cerebral vascular accident) Current Visit: No Status: Chronic Assessment and plan: May 01. Resume Plavix and aspirin. Qualifiers: CVA mechanism: stenosis Precerebral and cerebral artery: middle cerebral artery Laterality of affected vessel: left Qualified Code(s): I63.512 - 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 (5) Anemia Current Visit: No Status: Acute Assessment and plan: May 01. Hemoglobin decreased to 11.6. Order anemia testing in a.m. Qualifiers: Anemia type: unspecified type Qualified Code(s): D64.9 - Anemia, unspecified - Subjective Interval history: May 01. He has no new complaints. He pulled NG tube out several hours ago and it was not reinserted. He has had no vomiting. - Constitutional Vitals: Temp Pulse Resp BP Pulse Ox 98.9 F 64 16 101/55 95 05/01/18 08:13 05/01/18 08:13 05/01/18 08:13 05/01/18 08:13 05/01/18 08:27 Exam: He is resting comfortably in bed and appears in no acute distress. Affect is cheerful. He is wearing oxygen by nasal cannula. Heart is regular without murmurs gallops or ectopics. Lungs are clear anteriorly. Abdomen is soft and nontender with bowel sounds present. I reviewed his medications and lab results. Internal Medicine: Result - Labs CBC & Chem 7: 05/01/18 06:18 05/01/18 06:18 Labs: Short CBC 05/01/18 Range/Units 06:18 WBC 8.5 (4.3-11.1) K/mcL Hgb 11.6 L (12.9-16.9) g/dL Hct 35.4 L (37.5-50.1) % Plt Count 198 (140-400) K/mcL Neutrophils # 5.5 (1.6-8.9) K/mcL BMP 05/01/18 06:18 Sodium 137 Potassium 4.0 Chloride 103 Carbon Dioxide 28 BUN 14 Creatinine 0.98 Glucose 120 H Calcium 8.5 L - ABG Interpretation ABG results: PT/INR, D-dimer PT 13.9 Seconds (9.4-12.1) H 04/30/18 06:25 Consult Discharge Plan - Plan Referrals: Paul Bermudez MD [Primary Care Provider] - 1 week
[2018-05-01] MEDS: Aspirin 81 MG TAB.CHEW PO SCH (14:04)
[2018-05-02] MEDS: MetroNIDAZOLE 500 MG/100 ML 500 MG/100 ML BAG IVPB SCH ×2 (00:40→08:40)
[2018-05-02 05:33] VITALS: BP 120/62
[2018-05-02 07:00] LABS: Basophils # 0.1 K/mcL (0.0-0.2); Basophils % 0.7 %; Eosinophils # 0.2 K/mcL (0.0-0.6); Eosinophils % 2.3 %; Hematocrit 36.8 % (37.5-50.1); Hemoglobin 12.2 g/dL (12.9-16.9); Immature Granulocytes % 0.5 % (0-4); Lymphocytes # 1.7 K/mcL (0.6-4.6); Lymphocytes % 22.6 %; Mean Corpuscular HGB Conc 33.2 g/dL (31.6-35.5); Mean Corpuscular Volume 84.4 fL (83.0-100.0); Mean Platelet Volume 9.2 fL (9.4-12.4); Monocytes # 0.9 K/mcL (0.0-1.3); Monocytes % 12.4 %; Neutrophils # 4.6 K/mcL (1.6-8.9); Platelet Count 202 K/mcL (140-400); Red Blood Count 4.36 M/mcL (4.19-5.50); Red Cell Distribution Width 12.9 % (11.5-14.5); Segmented Neutrophils % 61.5 %
[2018-05-02] MEDS: Aspirin 81 MG TAB.CHEW PO SCH (08:39)
[2018-05-02 09:32] LABS: % Iron Saturation 16 % (20-55); Iron 48 mcg/dL (65-175); Transferrin 221 mg/dL (203-362)
[2018-05-02 09:49] LABS: Ferritin 42 ng/mL (20-250)
[2018-05-02 09:55] LABS: Vitamin B12 405 pg/mL (250-1100)
[2018-05-02 10:20] LABS: Folate > 22.3 ng/mL (3.0-16.0)
--- NOTE | 2018-05-02 10:27 | Discharge Summary ---
Date of Encounter: 05/02/18 Time of Encounter: 10:15 - Discharge Diagnosis (1) Enteritis Priority: Primary Status: Resolved (2) Pneumonia Priority: Secondary Status: Acute Qualifiers: Pneumonia type: due to unspecified organism Laterality: right Lung location: lower lobe of lung Qualified Code(s): J18.1 - Lobar pneumonia, unspecified organism (3) Hypertension Priority: Secondary Status: Chronic Qualifiers: Hypertension type: essential hypertension Qualified Code(s): I10 - Essential (primary) hypertension (4) CVA (cerebral vascular accident) Priority: Secondary Status: Chronic Qualifiers: CVA mechanism: stenosis Precerebral and cerebral artery: middle cerebral artery Laterality of affected vessel: left Qualified Code(s): I63.512 - 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 (5) Anemia Priority: Secondary Status: Acute Qualifiers: Anemia type: unspecified type Qualified Code(s): D64.9 - Anemia, unspecified Hospital course: Mr. Charlton is a 87 year old male who was sent to emergency room from [facility] after staff reported multiple episodes of vomiting in the preceding hours. There was no visible blood reported. He was evaluated in emergency room and found to have leukocytosis without significant left shift. CT scan showed abnormality suggestive of infectious enteritis. He was admitted to [facility] floor for ongoing care needs. Initial orders written by the emergency room physician. I saw him on April 30 and performed a history and physical. He was given IV Cipro and Flagyl with lactobacillus. Abdominal CT scan showed right small pleural effusion with adjacent airspace disease. He had clinical improvement with WBC normalizing by the day after admission and remained normal throughout hospitalization with resolution of left shift. He will be prescribed oral Cipro for 2 additional days after discharge. Azotemia resolved with BUN and creatinine decreasing to 14 and 0.98 respectively by May 01 with estimated GFR greater than 60. Anemia testing showed iron 48, transferrin saturation 16%, transferrin 221, ferritin 42, and B12 405. An NG tube was initially placed but the patient removed this after a few hours and had no further episodes of vomiting. He tolerated adequate amounts of oral intake by day of discharge. He will be discharged to [facility] and follow with his PCP. - Time Spent with Patient Total time spent providing and/or coordinating discharge services: - Discharge Medications Prescriptions: Ciprofloxacin [Cipro] 500 mg PO BID 2 Days tablet Lactobacillus [Culturelle] 1 each PO BID 2 Days [email or web address] Home Medications: Aspirin [Adult Low Dose Aspirin EC] 81 mg PO QAM 08/24/15 [History] Clopidogrel [Plavix] 75 mg PO HS 08/24/15 [History] Multivitamin/Iron/Folic Acid [Centrum Complete Multivit Tab] 1 each PO QAM 08/24 [History] Montelukast [Singulair] 10 mg PO DAILY 03/11/17 [History] ALPRAZolam [Xanax 0.5 MG Tablet] 0.5 mg PO Q6H PRN #20 tab 03/13/17 [Rx] Simvastatin [Zocor] 40 mg PO HS #0 03/13/17 [Rx] Acetaminophen [Tylenol] 325 mg PO 0500 PRN 12/27/17 [History] Citalopram [CeleXA] 20 mg PO DAILY 12/27/17 [History] Pantoprazole Sodium [Protonix] 20 mg PO DAILY 12/27/17 [History] Ammonium Lactate [Lac-Hydrin Five] 226 gm TP DAILY 04/29/18 [History] Vitamin B Complex/Vit C/Vit E [Stresstab] 1 each PO DAILY 04/29/18 [History] Cetirizine HCl [Zyrtec] 10 mg PO DAILY PRN #0 05/02/18 [Rx] Ciprofloxacin [Cipro] 500 mg PO BID 2 Days tablet 05/02/18 [Rx] Lactobacillus [Culturelle] 1 each PO BID 2 Days [email or web address] 05/02/18 [Rx] Allergies/Adverse Reactions: 3 Allergy/AdvReac Type Severity Reaction Status Date / Time No Known Allergies Allergy Verified 03/11/17 18:03 Date of admission: 05/01/18 11:06 Primary care physician: Paul Bermudez MD - Constitutional Vitals: Temp Pulse Resp BP Pulse Ox 98.1 F 66 16 120/62 96 05/02/18 05:32 05/02/18 05:32 05/02/18 05:32 05/02/18 05:32 05/02/18 05:32 - Patient Status Disposition: Transfer SNF Condition: Undetermined - Discharge Instructions Follow Up With: Paul Bermudez MD [Primary Care Provider] - 1 week - Diet and Activity Activity: resume usual activities as tolerated Diet: advance to your usual diet
--- NOTE | 2018-05-02 10:32 | Physician Discharge Referral ---
ExtendedCare Referral Info Transfer To: [facility] Provider in Charge: Ermias Provider in Charge after Transfer: PCP (Aidan) - Diagnosis (1) Enteritis Priority: Primary Status: Resolved (2) Pneumonia Priority: Secondary Status: Acute (3) Hypertension Priority: Secondary Status: Chronic (4) CVA (cerebral vascular accident) Priority: Secondary Status: Chronic (5) Anemia Priority: Secondary Status: Acute - Transfer Medications Prescriptions: Ciprofloxacin [Cipro] 500 mg PO BID 2 Days tablet Lactobacillus [Culturelle] 1 each PO BID 2 Days cap.[email or web address] Home Medications: Aspirin [Adult Low Dose Aspirin EC] 81 mg PO QAM 08/24/15 [History] Clopidogrel [Plavix] 75 mg PO HS 08/24/15 [History] Multivitamin/Iron/Folic Acid [Centrum Complete Multivit Tab] 1 each PO QAM 08/24 [History] Montelukast [Singulair] 10 mg PO DAILY 03/11/17 [History] ALPRAZolam [Xanax 0.5 MG Tablet] 0.5 mg PO Q6H PRN #20 tab 03/13/17 [Rx] Simvastatin [Zocor] 40 mg PO HS #0 03/13/17 [Rx] Acetaminophen [Tylenol] 325 mg PO 0500 PRN 12/27/17 [History] Citalopram [CeleXA] 20 mg PO DAILY 12/27/17 [History] Pantoprazole Sodium [Protonix] 20 mg PO DAILY 12/27/17 [History] Ammonium Lactate [Lac-Hydrin Five] 226 gm TP DAILY 04/29/18 [History] Vitamin B Complex/Vit C/Vit E [Stresstab] 1 each PO DAILY 04/29/18 [History] Cetirizine HCl [Zyrtec] 10 mg PO DAILY PRN #0 05/02/18 [Rx] Ciprofloxacin [Cipro] 500 mg PO BID 2 Days tablet 05/02/18 [Rx] Lactobacillus [Culturelle] 1 each PO BID 2 Days cap.[email or web address] 05/02/18 [Rx] Allergies/Adverse Reactions: 3 Allergy/AdvReac Type Severity Reaction Status Date / Time No Known Allergies Allergy Verified 03/11/17 18:03 - Respiratory Orders Smoking Cessation: Smoking cessation has been advised. For more information, call the [place] [facility] Quit Line at 8-354-PNGK-NOW. - Lab Orders Lab Orders: Other (include drug levels w/frequency) (CBC with differential, BMP in 1 week) - Rehabiliation Orders Rehab Potential: Fair Rehab Orders: Evaluation for Physical Therapy, Evaluation for Occupational Therapy - Diet Orders Mechanical Soft CERTIFICATION: I certify that the transfer of the above named patient to an Extended Care Facility is necessary for the continuing treatment of the diagnosis listed. The above information is true and accurate reflection of patient's current condition. Confidential - Redisclosure prohibited without a patient's written consent.
== END 2018-05-02 12:00 | DRG 391 ==
LOC: EMEROOPIK 20:40 → INPPIK 20:40
PROVIDERS: ADMIT Internal Medicine; ATTEND Internal Medicine

== ENCOUNTER 2019-07-31 01:03 | Inpatient (IN) ==
[2019-07-31] MEDS ORDERED: Ondansetron 4 MG/2 ML VIAL IVP ONE (01:14)
[2019-07-31] MEDS ORDERED: Vancomycin 1,000 MG, Vancomycin 500 MG in 0.9 % Sodium Chloride 250 ML IVPB ONE (01:49)
[2019-07-31 01:51] LABS: Basophils # 0.1 K/mcL (0.0-0.2); Basophils % 0.4 %; Eosinophils % 0.2 %; Hematocrit 42.3 % (37.5-50.1); Hemoglobin 13.8 g/dL (12.9-16.9); Immature Granulocytes % 0.4 % (0-4); Lymphocytes # 1.5 K/mcL (0.6-4.6); Lymphocytes % 8.7 %; Mean Corpuscular HGB Conc 32.6 g/dL (31.6-35.5); Mean Corpuscular Hemoglobin 28.6 pg (28.0-33.3); Mean Corpuscular Volume 87.6 fL (83.0-100.0); Mean Platelet Volume 9.2 fL (9.4-12.4); Monocytes % 5.6 %; Platelet Count 267 K/mcL (140-400); Red Blood Count 4.83 M/mcL (4.19-5.50); Red Cell Distribution Width 14.6 % (11.5-14.5); Segmented Neutrophils % 84.7 %; White Blood Count 17.7 K/mcL (4.3-11.1)
[2019-07-31 02:10] LABS: Alanine Aminotransferase 28 Units/L (7-52); Albumin 3.5 g/dL (3.5-5.7); Albumin/Globulin Ratio 0.9 (1.1-2.2); Alkaline Phosphatase 97 Units/L (34-104); Aspartate Amino Transferase 34 Units/L (13-39); BUN/Creatinine Ratio 19 (6-26); Bilirubin,Total 0.3 mg/dL (0.3-1.0); Blood Urea Nitrogen 22 mg/dL (8-23); Calcium 9.1 mg/dL (8.6-10.3); Carbon Dioxide 26 mEq/L (23-29); Chloride 103 mEq/L (98-107); Glucose 245 mg/dL (70-105); Osmolality,Calculated 299 (280-300); Potassium 4.5 mEq/L (3.5-5.1); Sodium 139 mEq/L (136-145); Total Protein 7.5 g/dL (6.4-8.9); eGFR For African Americans > 60 (> 60); eGFR For Non-African Americans 60 (> 60)
[2019-07-31 02:22] LABS: Bilirubin,Urine Negative (Negative); Blood,Urine Trace-intact (Negative); Clarity,Urine Clear (Clear); Color,Urine Yellow (Yellow); Glucose,Urine (UA) Normal (Normal); Ketones,Urine Negative (Negative); Leukocyte Esterase,Urine Negative (Negative); Nitrite,Urine Negative (Negative); PH,Urine 5.5 pH Units (5.0-8.0); Protein,Urine 30 mg/dL (Neg-Trace); Specific Gravity,Urine >= 1.030 (1.010-1.025); Urobilinogen,Urine Normal (Normal)
[2019-07-31] MEDS: 0.9 % Sodium Chloride 1,000 ML IVC SCH ×2 (02:23→04:12)
[2019-07-31 02:33] LABS: Bacteria,Urine Few per hpf (None-Few); Granular Casts,Urine Few per lpf (None Seen); Hyaline Casts,Urine Few per lpf (None-Few); Mucus,Urine Few per lpf (Few); Squamous Epithelial Cell,Urine Few per lpf (None-Few)
[2019-07-31] MEDS ORDERED: Piperacillin/Tazobactam 3.375 GM in 0.9 % Sodium Chloride Mini Bag 100 ML IVPB ONE ×2 (02:39→04:00)
[2019-07-31] MEDS ORDERED: D5% in Water 1,000 ML IVC PRN (03:47)
[2019-07-31] MEDS ORDERED: Acetaminophen 325 MG TABLET PO PRN (03:47)
[2019-07-31] MEDS ORDERED: MOM Conc 10 ML UD.LIQ PO PRN (03:47)
[2019-07-31] MEDS ORDERED: Ondansetron 4 MG/2 ML VIAL IVP PRN (03:47)
[2019-07-31] MEDS ORDERED: NON-FORMULARY MEDICATION 1 EACH EACH (Na Phos,M-B/Na Phos,Di-Ba [Fleet Enema Extra] 230 ML RC PRN (03:47)
[2019-07-31] MEDS ORDERED: Dextrose Gel 15 GM/37.5 ML TUBE PO PRN ×2 (03:47)
[2019-07-31] MEDS ORDERED: Ammonium Lactate 30 APPL/225 GM BOTTLE TP PRN (03:47)
[2019-07-31] MEDS ORDERED: *HR* Dextrose 50 % in Water (Syg) 50 ML SYRINGE IVP PRN (03:47)
[2019-07-31] MEDS ORDERED: Eucerin Cream 57 GM TUBE TP PRN (03:47)
[2019-07-31] MEDS ORDERED: Naloxone 0.4 MG/ML INJ IVP PRN (03:47)
[2019-07-31] MEDS ORDERED: Bisacodyl 10 MG RECTAL SUPPOSITORY RC PRN (03:47)
[2019-07-31] MEDS ORDERED: *HR* Metformin 500 MG TABLET PO SCH (08:00)
[2019-07-31] MEDS: Insulin LISPRO 300 UNITS/3 ML VIAL SQ SCH ×3 (08:19→17:13)
[2019-07-31] MEDS ORDERED: *HR* Dextrose 50 % in Water (Vial) 50 ML VIAL IVP PRN (08:30)
[2019-07-31] MEDS: levoFLOXacin 750 MG/150 ML 750 MG/150 ML BAG IVPB SCH (11:09)
[2019-07-31] MEDS: Piperacillin/Tazobactam 3.375 GM in 0.9 % Sodium Chloride Mini Bag 100 ML IVPB SCH ×2 (11:15→21:00)
[2019-07-31] MEDS: Aspirin Enteric Coated 81 MG Tablet PO SCH (11:25)
[2019-07-31] MEDS: Vitamin B Complex/Vit C/Vit E 1 EACH TABLET PO SCH (11:25)
[2019-07-31] MEDS: ALPRAZolam 0.5 MG TABLET PO SCH ×2 (11:25→21:35)
[2019-07-31] MEDS: *HR* Glimepiride 2 MG TABLET PO SCH (11:26)
[2019-07-31] MEDS: Loratadine 10 MG TABLET PO SCH (11:26)
[2019-07-31] MEDS: *HR* Heparin 5,000 UNIT/ML VIAL SQ SCH (17:30)
[2019-07-31] MEDS: Gentamicin Oint 15 GM TUBE TP SCH ×2 (17:30→21:52)
[2019-08-01] MEDS: Piperacillin/Tazobactam 3.375 GM in 0.9 % Sodium Chloride Mini Bag 100 ML IVPB SCH ×3 (05:31→22:34)
[2019-08-01] MEDS: *HR* Heparin 5,000 UNIT/ML VIAL SQ SCH ×2 (05:36→17:34)
[2019-08-01 05:50] LABS: Hematocrit 35.4 % (37.5-50.1); Hemoglobin 11.4 g/dL (12.9-16.9); Mean Corpuscular HGB Conc 32.2 g/dL (31.6-35.5); Mean Corpuscular Hemoglobin 28.3 pg (28.0-33.3); Mean Corpuscular Volume 87.8 fL (83.0-100.0); Mean Platelet Volume 9.5 fL (9.4-12.4); Platelet Count 206 K/mcL (140-400); Red Blood Count 4.03 M/mcL (4.19-5.50); Red Cell Distribution Width 15.1 % (11.5-14.5); White Blood Count 11.7 K/mcL (4.3-11.1)
[2019-08-01 06:12] LABS: BUN/Creatinine Ratio 15 (6-26); Blood Urea Nitrogen 16 mg/dL (8-23); Calcium 8.6 mg/dL (8.6-10.3); Carbon Dioxide 30 mEq/L (23-29); Chloride 107 mEq/L (98-107); Glucose 121 mg/dL (70-105); Osmolality,Calculated 298 (280-300); Potassium 3.8 mEq/L (3.5-5.1); Sodium 143 mEq/L (136-145); eGFR For African Americans > 60 (> 60); eGFR For Non-African Americans > 60 (> 60)
[2019-08-01] MEDS: Vitamin B Complex/Vit C/Vit E 1 EACH TABLET PO SCH (09:25)
[2019-08-01] MEDS: *HR* Glimepiride 2 MG TABLET PO SCH (09:25)
[2019-08-01] MEDS: Aspirin Enteric Coated 81 MG Tablet PO SCH (09:25)
[2019-08-01] MEDS: ALPRAZolam 0.5 MG TABLET PO SCH ×2 (09:25→22:33)
[2019-08-01] MEDS: levoFLOXacin 750 MG/150 ML 750 MG/150 ML BAG IVPB SCH (09:26)
[2019-08-01] MEDS: Insulin LISPRO 300 UNITS/3 ML VIAL SQ SCH ×3 (09:26→17:35)
[2019-08-01] MEDS: Loratadine 10 MG TABLET PO SCH (09:26)
[2019-08-01] MEDS: Gentamicin Oint 15 GM TUBE TP SCH ×2 (09:27→22:37)
[2019-08-01 10:29] LABS: Adenovirus Not Detected (Not Detect); Bordetella Pertussis Not Detected (Not Detect); Chlamydophila pneumoniae Not Detected (Not Detect); Coronavirus 229E Not Detected (Not Detect); Coronavirus HKU1 Not Detected (Not Detect); Coronavirus NL63 Not Detected (Not Detect); Coronavirus OC43 Not Detected (Not Detect); Human Metapneumovirus Not Detected (Not Detect); Human Rhinovirus/Enterovirus Not Detected (Not Detect); Influenza A Subtype 2009 H1 Not Detected (Not Detect); Influenza A Untypeable Not Detected (Not Detect); Influenza B Not Detected (Not Detect); Mycoplasma pneumoniae Not Detected (Not Detect); Parainfluenza Virus 1 Not Detected (Not Detect); Parainfluenza Virus 2 Not Detected (Not Detect); Parainfluenza Virus 3 Not Detected (Not Detect); Parainfluenza Virus 4 Not Detected (Not Detect); Respiratory Syncytial Virus Not Detected (Not Detect)
[2019-08-01] MEDS: Ipratropium/Albuterol Neb 3 ML IH PRN (17:24)
[2019-08-02 06:23] LABS: Hematocrit 36.6 % (37.5-50.1); Hemoglobin 11.5 g/dL (12.9-16.9); Mean Corpuscular HGB Conc 31.4 g/dL (31.6-35.5); Mean Corpuscular Hemoglobin 27.6 pg (28.0-33.3); Mean Corpuscular Volume 87.8 fL (83.0-100.0); Mean Platelet Volume 9.7 fL (9.4-12.4); Platelet Count 230 K/mcL (140-400); Red Blood Count 4.17 M/mcL (4.19-5.50); Red Cell Distribution Width 14.9 % (11.5-14.5); White Blood Count 8.5 K/mcL (4.3-11.1)
[2019-08-02] MEDS: *HR* Heparin 5,000 UNIT/ML VIAL SQ SCH (06:26)
[2019-08-02] MEDS: Piperacillin/Tazobactam 3.375 GM in 0.9 % Sodium Chloride Mini Bag 100 ML IVPB SCH (06:27)
[2019-08-02 06:40] LABS: BUN/Creatinine Ratio 15 (6-26); Blood Urea Nitrogen 17 mg/dL (8-23); Calcium 8.8 mg/dL (8.6-10.3); Carbon Dioxide 29 mEq/L (23-29); Chloride 108 mEq/L (98-107); Glucose 111 mg/dL (70-105); Osmolality,Calculated 300 (280-300); Potassium 3.7 mEq/L (3.5-5.1); Sodium 144 mEq/L (136-145); eGFR For African Americans > 60 (> 60); eGFR For Non-African Americans > 60 (> 60)
[2019-08-02] MEDS: Ipratropium/Albuterol Neb 3 ML IH PRN (06:59)
[2019-08-02 07:06] VITALS: BP 121/68
[2019-08-02] MEDS: Insulin LISPRO 300 UNITS/3 ML VIAL SQ SCH (07:55)
[2019-08-02] MEDS: ALPRAZolam 0.5 MG TABLET PO SCH (09:41)
[2019-08-02] MEDS: *HR* Glimepiride 2 MG TABLET PO SCH (09:41)
[2019-08-02] MEDS: Loratadine 10 MG TABLET PO SCH (09:41)
[2019-08-02] MEDS: Aspirin Enteric Coated 81 MG Tablet PO SCH (09:41)
[2019-08-02] MEDS: Vitamin B Complex/Vit C/Vit E 1 EACH TABLET PO SCH (09:41)
[2019-08-03] MEDS ORDERED: levoFLOXacin 750 MG/150 ML 750 MG/150 ML BAG IVPB SCH (09:00)
== END 2019-08-02 13:30 | DRG 871 ==
LOC: EMEROOPIK 01:03 → INPPIK 01:03 → SUATTDRO 02:53 → INPPIK 03:19
PROVIDERS: ADMIT Internal Medicine; ATTEND Family Medicine